=== PATIENT | female | born 1965 | race Caucasian/White ===

== ENCOUNTER 2023-10-09 12:59 | Emergency (ER) | payer OTHER ==
[2023-10-09] MEDS ORDERED: Ketorolac Tromethamine 30 MG (1 mL) VIAL ONE (13:56)
[2023-10-09] MEDS ORDERED: predniSONE 20 MG TAB ONE ×2 (13:57→13:59)
[2023-10-09] MEDS ORDERED: Orphenadrine Citrate 60 MG/2 ML VIAL ONE (13:57)
== END 2023-10-09 17:56 | disposition home or self-care (01) ==
LOC: ERS 12:59
DX: M54.41 Lumbago with sciatica, right side (principal)
CPT/HCPCS: 96372; 99283; J1885; J2360; J7512

== ENCOUNTER 2023-10-15 12:44 | Inpatient (IN) | payer MEDICARE, OTHER ==
[2023-10-15 14:01] LABS: #Basophils 0.1 thou/uL (0.0-0.2); #Eosinphils 0.2 thou/uL (0.0-0.7); #Monocytes 1.2 thou/uL (0.11-0.59); %Basophils 0.7 % (0.0-1.0); %Eosinophils 1.3 % (0.0-10.0); %Lymphocytes 26.2 % (21.0-51.0); %Monocytes 8.5 % (0.0-10.0); %Neutrophils 62.9 % (42.0-75.0); Hematocrit 37.5 % (36.0-47.0); Hemoglobin 12.6 g/dL (12.0-16.0); Mean Corpuscular HGB CONC 33.6 g/dL (32.0-36.0); Mean Corpuscular Hemoglobin 31.7 pg (27.0-31.0); Mean Corpuscular Volume 94.5 fl (78.0-98.0); Mean Platelet Volume 9.1 fL (7.4-10.4); Platelet Count 360 10x3/uL (130-400); RBC Distribution Width 13.2 % (11.5-14.5); Red Blood Cell (RBC) Count 3.97 mill/uL (4.20-5.40); White Blood Cell (WBC) Count 14.3 10x3/uL (4.8-10.8)
[2023-10-15 14:29] LABS: ALT (SGPT) 20 U/L (8-55); AST (SGOT) 25 U/L (5-34); Albumin 3.9 g/dL (3.5-5.0); Alkaline Phosphatase 78 U/L (40-110); Anion Gap 12 mmol/L (10-20); BUN (Urea Nitrogen) 23 mg/dL (9.8-20.1); Bilirubin, Total 0.3 mg/dL (0.2-1.2); Calc. Creatinine Clearance 0 mL/min (70-130); Carbon Dioxide 21 mmol/L (22-29); Chloride 106 mmol/L (98-107); Estimated GFR 75; Globulin 2.9 g/dL (2.4-3.5); Glucose 81 mg/dL (70-105); Potassium 4.2 mmol/L (3.5-5.1); Protein, Total 6.8 g/dL (6.0-8.3); Sodium 135 mmol/L (136-145)
[2023-10-15] MEDS ORDERED: Morphine 4 MG/ML VIAL ONE (16:25)
[2023-10-15] MEDS ORDERED: Acetaminophen 650 MG Suppository PR PRN (18:04)
[2023-10-15 18:26] VITALS: BMI 20.3
[2023-10-15] MEDS: Nicotine 14 MG PATCH TD SCH (21:02)
[2023-10-15] MEDS: Sodium Chloride 0.9% 1,000 ML IV SCH (21:03)
[2023-10-15] MEDS: Acetaminophen 325 MG TAB PO PRN (21:05)
[2023-10-15] MEDS: Ketorolac Tromethamine 30 MG (1 mL) VIAL IVP SCH (22:10)
[2023-10-15] MEDS: tiZANidine HCl 4 MG TAB PO SCH (23:05)
[2023-10-16] MEDS: Acetaminophen/Codeine 30-300mg Tablet PO PRN (00:08)
[2023-10-16] MEDS: Morphine 2 MG/ML VIAL SLOW IVP PRN (02:10)
[2023-10-16] MEDS: HYDROcodone/Acetaminophen 5/325 mg Tablet PO PRN (05:36)
[2023-10-16 05:55] LABS: #Basophils 0.1 thou/uL (0.0-0.2); #Eosinphils 0.3 thou/uL (0.0-0.7); #Neutrophils 4.8 thou/uL (1.40-6.50); %Basophils 0.9 % (0.0-1.0); %Eosinophils 3.1 % (0.0-10.0); %Lymphocytes 32.5 % (21.0-51.0); %Monocytes 10.5 % (0.0-10.0); %Neutrophils 52.7 % (42.0-75.0); Hematocrit 38.3 % (36.0-47.0); Hemoglobin 12.5 g/dL (12.0-16.0); Mean Corpuscular HGB CONC 32.6 g/dL (32.0-36.0); Mean Corpuscular Hemoglobin 30.9 pg (27.0-31.0); Mean Corpuscular Volume 94.6 fl (78.0-98.0); Mean Platelet Volume 9.1 fL (7.4-10.4); Platelet Count 358 10x3/uL (130-400); RBC Distribution Width 13.3 % (11.5-14.5); Red Blood Cell (RBC) Count 4.05 mill/uL (4.20-5.40); White Blood Cell (WBC) Count 9.1 10x3/uL (4.8-10.8)
[2023-10-16 06:06] LABS: INR-International Normal Ratio 0.9; PTT 27.1 sec (22.9-36.1); Prothrombin Time 12.4 sec (12.0-14.7)
[2023-10-16 06:19] LABS: Anion Gap 10 mmol/L (10-20); BUN (Urea Nitrogen) 20 mg/dL (9.8-20.1); Calc. Creatinine Clearance 68 mL/min (70-130); Calcium 8.5 mg/dL (7.8-10.44); Carbon Dioxide 25 mmol/L (22-29); Chloride 108 mmol/L (98-107); Estimated GFR 94; Glucose 88 mg/dL (70-105); Sodium 139 mmol/L (136-145)
[2023-10-16] MEDS ORDERED: fentaNYL PF 100 MCG/2 ML SYRINGE ONE (10:11)
[2023-10-16] MEDS ORDERED: Midazolam HCl 2 mg/2 ml Vial ONE (10:11)
[2023-10-16] MEDS ORDERED: PROPOFOL 20 ML ONE (10:11)
[2023-10-16] MEDS ORDERED: Lidocaine 1% PF 5 ML VIAL ONE (10:12)
[2023-10-16] MEDS ORDERED: Rocuronium Bromide 10 MG/ML (10ML VIAL) ONE (10:12)
[2023-10-16] MEDS ORDERED: Ondansetron PF 4 MG/2 ML Vial ONE (10:12)
[2023-10-16] MEDS ORDERED: Vancomycin 1 GM VIAL ONE (10:31)
[2023-10-16] MEDS ORDERED: Thrombin 5000 UNITS/5 ML VIAL ONE (10:31)
[2023-10-16] MEDS ORDERED: CEFAZOLIN 2 GM VIAL ONE (10:40)
[2023-10-16] MEDS ORDERED: Sodium Chloride 0.9% 100 ML ONE (10:40)
[2023-10-16] MEDS ORDERED: ePHEDrine Sulfate 50 MG/10 ML VIAL ONE (11:07)
[2023-10-16] MEDS ORDERED: Ondansetron PF 4 MG/2 ML Vial IVP PRN (13:43)
[2023-10-16] MEDS ORDERED: diphenhydrAMINE 25 MG CAP PO PRN (13:43)
[2023-10-16] MEDS ORDERED: SUGAMMADEX SODIUM 200 MG/2 ML VIAL ONE (13:49)
[2023-10-16] MEDS ORDERED: Promethazine HCl 25 MG/ML VIAL IM PRN (13:56)
[2023-10-16] MEDS ORDERED: Ondansetron HCl/PF 4 MG/2 ML Vial IVP PRN (13:56)
[2023-10-16] MEDS ORDERED: Ketorolac Tromethamine 30 MG (1 mL) VIAL ONE (14:00)
[2023-10-16] MEDS ORDERED: fentaNYL 50 mcg/mL 1 mL Vial ONE ×2 (14:07→14:25)
[2023-10-16] MEDS: Ketorolac Tromethamine 30 MG (1 mL) VIAL IVP PRN (16:48)
[2023-10-16 17:11] LABS: Bilirubin Negative (Negative); Blood, Urine Negative (Negative); Clarity Clear (Clear); Glucose, Urine (Dipstick) Normal (Negative); Ketone, Urine Negative (Negative); Leukocyte Negative Leu/uL (Negative); Nitrite Negative (Negative); Protein, Urine (Dipstick) Negative (Neg-Trace); Specific Gravity, Urine 1.009 (1.002-1.036); Urobilinogen Normal mg/dL (Less than 2); pH, Urine 6.5 (5.0-9.0)
[2023-10-16 17:21] LABS: Amphetamine Not Detected (NotDetected); Barbiturates Screen Not Detected (NotDetected); Benzodiazepine Screen Not Detected (NotDetected); Cocaine Metabolite Screen Detected (NotDetected); Methadone Not Detected (NotDetected); Methamphetamine Detected (NotDetected); Opiate Screen Detected (NotDetected); Oxycodone Screen Not Detected (NotDetected); Phencyclidine (PCP) Not Detected (NotDetected); THC/Cannabinoid Screen Not Detected (NotDetected); Tricyclic Screen Not Detected (NotDetected)
[2023-10-16] MEDS: CEFAZOLIN 2 GM in Sodium Chloride 0.9% 100 ML IVPB SCH (17:53)
[2023-10-16] MEDS: tiZANidine HCl 4 MG TAB PO PRN (19:56)
[2023-10-17 00:40] LABS: Chlam.trachomatis by PCR,Urine Not Detected (NotDetected); GC N.gonorrhoeae PCR,UrineVOID Not Detected (NotDetected)
[2023-10-17] MEDS: Milk Of Magnesia 30 ML UDCUP PO PRN (08:36)
[2023-10-17] MEDS: Bisacodyl 5 MG TAB PO PRN (20:49)
[2023-10-18 08:24] VITALS: BP 116/69; TEMP 99.1
== END 2023-10-18 13:11 | disposition home or self-care (01) | DRG 516 ==
LOC: ERS 12:44 → T4-A 16:10 → OBSVTOIN 10-16 13:40
PROVIDERS: ADMIT Internal Medicine; ATTEND Internal Medicine
PROC: 01NB0ZZ Release Lumbar Nerve, Open Approach (ICD-10-PCS; principal; 2023-10-16)
PROC: 3E033XZ Introduction of Vasopressor into Peripheral Vein, Percutaneous Approach (ICD-10-PCS; 2023-10-16)
DX: M51.36 Other intervertebral disc degeneration, lumbar region (principal); E87.1 Hypo-osmolality and hyponatremia; M48.062 Spinal stenosis, lumbar region with neurogenic claudication; J45.909 Unspecified asthma, uncomplicated; Z66 Do not resuscitate; F32.A Depression, unspecified; F17.210 Nicotine dependence, cigarettes, uncomplicated; F12.90 Cannabis use, unspecified, uncomplicated; N89.8 Other specified noninflammatory disorders of vagina; Z98.890 Other specified postprocedural states; Z90.49 Acquired absence of other specified parts of digestive tract; Z98.891 History of uterine scar from previous surgery; Z71.6 Tobacco abuse counseling; M21.372 Foot drop, left foot
CPT/HCPCS: 36415; 36416; 72131; 72148; 80048; 80053; 80306; 81003; 83735; 85025; 85610; 85730; 87491; 87591; 87661; 96372; 96374; 96375; 96376; G0378; J1885; J2250; J2270; J2272; J2405; J2704; J3010; J3370; J3490; J7050